=== PATIENT | female | born 1975 | race African-American/Black ===

== ENCOUNTER 2017-06-03 03:39 | Emergency (ER) | payer OTHER ==
[~2017-06-03] VITALS: Ht 157.5 cm; Wt 79.4 kg
[2017-06-03] MEDS ORDERED: ONDANSETRON HCL 4 MG/2 ML VIAL IV ONE (04:15)
[2017-06-03] MEDS ORDERED: SODIUM CHLORIDE 0.9% 1,000 ML IV ONE (04:15)
[2017-06-03] MEDS ORDERED: HYDROmorphone HCL 2 MG/ML VL IV ONE (04:15)
[2017-06-03 04:46] LABS: Basophils # (auto) 0.1 uL; Basophils % (auto) 0.9 % (0.0-2.0); Eosinophils # (auto) 0.1 uL; Eosinophils % (auto) 1.1 % (0.0-7.0); Hematocrit 36.4 % (36.0-46.0); Hemoglobin 12.4 g/dL (12.2-16.2); Lymphocytes # (auto) 1.6 uL; Lymphocytes % (auto) 25.5 % (10.0-50.0); Mean Corpuscular Hemoglobin 30.8 pg (28.0-32.0); Mean Corpuscular Hgb Conc. 34.1 g/dL (32.0-36.0); Mean Corpuscular Volume 90.2 fL (80.0-100.0); Mean Platelet Volume 8.2 fL (6.9-10.8); Monocytes # (auto) 0.5 uL; Monocytes % (auto) 8.1 % (0.0-12.0); Neutrophils % (auto) 64.4 % (37.0-80.0); Nucleated Red Blood Cells % 0.1 %; Platelet Count (auto) 211 10^3/uL (140-450); Red Cell Distribution Width 13.4 % (11.8-14.3); White Blood Cell 6.2 10^3/uL (4.4-10.8)
[2017-06-03 04:48] LABS: Albumin 3.6 g/dL (3.4-5.0); BUN/Creatinine Ratio 17.1; Calcium 8.8 mg/dL (8.5-10.1); Potassium 4.1 mmol/L (3.5-5.1)
[2017-06-03 04:51] LABS: Bilirubin, Total 0.4 mg/dL (0.2-1.0); Total Protein 7.7 g/dL (6.4-8.2)
[2017-06-03 05:45] VITALS: BP 111/72
[2017-06-03 06:20] LABS: Urine Bilirubin Negative (Negative); Urine Blood Negative /uL (Negative); Urine Color Yellow (Yellow); Urine Glucose Normal (Normal); Urine Ketone Negative (Negative); Urine Nitrite Negative (Negative); Urine RBC <1 /hpf (0 - 4); Urine Squamous Epithelial Cell FEW /hpf (<5); Urine Urobilinogen Normal (Negative)
== END 2017-06-03 06:36 | disposition home or self-care (01) ==
LOC: EDBD 03:39 → ER 03:44
DX: S33.5XXA Sprain of ligaments of lumbar spine, initial encounter (principal); M79.1 Myalgia; X58.XXXA Exposure to other specified factors, initial encounter; Y93.89 Activity, other specified; Y99.8 Other external cause status; Y92.89 Other specified places as the place of occurrence of the external cause; Z88.8 Allergy status to other drugs, medicaments and biological substances
CPT/HCPCS: 36415; 71010; 74176; 80053; 81001; 85025; 96361; 96374; 96375; 99285; J1170; J2405

== ENCOUNTER 2024-06-21 07:02 | Emergency (ER) | payer OTHER ==
[~2024-06-21] VITALS: Ht 157.5 cm; Wt 90.3 kg
[~2024-06-21 07:02] MED LIST: IBUP-1455 PO
[2024-06-21] MEDS ORDERED: ALBU108A5 IN (07:25)
[2024-06-21] MEDS ORDERED: BENZ100C97 PO (07:25)
[2024-06-21] MEDS ORDERED: IBUP-1454 PO (07:25)
[2024-06-21] MEDS ORDERED: METH4PAK PO (07:25)
[2024-06-21] MEDS ORDERED: PROM1SOL4 PO (07:25)
--- NOTE | 2024-06-21 07:25 | ED.PDOC ---
SOB-HPI HPI Comments 49-year-old female presents with a chief complaint of a nonproductive cough x7 days. 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 Hx Family History Family History: Unknown Social History Smoker: Non-Smoker Alcohol: Denies ETOH Use Drugs: Denies Drug Use Lives In: Home All Other Systems: Reviewed and Negative (per hpi) Physical Exam General Appearance: No Apparent Distress, Normal HEENT: Normal ENT Inspection, Pharynx Normal, TMs Normal Neck: Full Range of Motion, Non-Tender, Normal, Normal Inspection Respiratory: Chest Non-Tender, Lungs Clear, No Accessory Muscle Use, No Respiratory Distress, Normal Breath Sounds Cardiovascular: No Edema, No JVD, No Murmur, No Gallop, Normal Peripheral Pulses, Regular Rate/Rhythm Breast Exam: Deferred Gastrointestinal: No Organomegaly, Non Tender, No Pulsatile Mass, Normal Bowel Sounds, Soft Genitalia: Deferred Pelvic: Deferred Rectal: Deferred Extremities: No calf tenderness, Normal capillary refill, Normal inspection, Normal range of motion, Non-tender, No pedal edema Musculoskeletal : Apperance: Normal Neurologic: Alert, tape controlled machine stitcher II-XII nml as Tested, No Motor Deficits, Normal Affect, Normal Mood, No Sensory Deficits Cerebellar Function: Normal Reflexes: Normal Skin: Dry, Normal Color, Warm Lymphatic: No Adenopathy Was a procedure done? Was a procedure done?: No Differential Dx Differential Diagnosis: Bronchitis X-Ray, Labs, Meds, VS Comment History and physical consistent of URI Take medication as prescribed No concerns for pneumonia at this time. No risk factors. No indication for antibiotics Discussed that cough can linger up to 6 weeks after viral URI ED precautions if cough does not alleviate or if cough worsens Supportive care and return precautions discussed Counseled viral infection and explained that antibiotics would not be helpful in resolving the illness sooner. Recommended vitamin C, rest, handwashing, and symptomatic care. Expect 2-week course with possibly of cough lingering up to 6 weeks. Nonpharmacological remedies for fluids has been recommended as well Patient is stable for discharge at this time. External notes reviewed. Test results and diagnostic imaging interpreted. All diagnostic findings, discharge care, education and instructions provided Follow-up with PCP in 2 to 3 days Patient verbalized understanding and agreed to treatment plan Vital signs stable, afebrile, no acute distress noted Patient ambulatory with strong steady gait Advised to return precautions for any new or worsening symptoms, return to ER immediately for re-evaluation Patient is aware that the purpose of this visit was for an acute medical emergency requiring emergent stabilization. Chronic conditions, including malignancies have not been ruled out. Patient is instructed to follow up with PCP as directed and discharge instructions for continued care and workup. If unable to arrange follow-up, patient is to return to the emergency department for reassessment. Patient (parent or legal guardian if applicable) was given verbal and written discharge instructions and acknowledges understanding. Time of 1ST Reevaluation: 07:22 Reevaluation 1ST: Improved Patient Education/Counseling: Diagnosis, Treatment Family Education/Counseling: Diagnosis, Treatment Departure 1 Departure Time of Disposition: 07:23 Impression: Primary Impression: Bronchitis Disposition: 01 HOME / SELF CARE / HOMELESS Condition: Stable e-Prescriptions Benzonatate (Benzonatate) 100 Mg Cap 1 CAP PO TID for 10 Days, #30 CAP 0 Refills Prov: HITESH HARGROVE NP 06/21/24 Ibuprofen (Ibuprofen) 600 Mg Tab 1 TAB PO TID for 10 Days, #30 TAB 0 Refills Prov: HITESH HARGROEV NP 06/21/24 Albuterol Sulfate (Albuterol Sulfate Hfa) 108 Mcg/Act Aer 108 MCG IN Q6HPRN PRN for 30 Days, #1 AER 0 Refills Prov: HITESH HARGROVE NP 06/21/24 Promethazine-Dm (Promethazine Dm 6.25-15 mg/5Ml) 1 Marily Marily 5 ML PO TIDP PRN for 10 Days, #150 ML 0 Refills Prov: HITESH HARGROVE NP 06/21/24 Methylprednisolone (Medrol Dosepak) 4 Mg Perry 4 MG PO UD, #21 TAB 0 Refills UAD Prov: HITESH HARGROVE NP 06/21/24 Discharged With: Self Critical Care Note Critical Care Time?: No Stability Stability form required: No Heart Score Heart Score: Heart Score Response (Comments) Value History N/A 0 EKG N/A 0 Age N/A 0 Risk Factors N/A 0 Troponin N/A 0 Total 0 HITESH HARGROVE COIN MACHINE MECHANIC Jun 21, 2024 07:25
[2024-06-21 07:35] VITALS: BP 156/88; PULSE 100; RESP 16; TEMP 98.7; O2SAT 97
== END 2024-06-21 07:25 | disposition home or self-care (01) ==
LOC: ER 07:02
DX: J40 Bronchitis, not specified as acute or chronic (principal)

== ENCOUNTER 2025-06-01 14:14 | Emergency (ER) | payer OTHER ==
[~2025-06-01] VITALS: Ht 157.5 cm; Wt 91.8 kg
[~2025-06-01 14:14] MED LIST changes: +ALBU108A5 IN; +BENZ100C97 PO; +IBUP-1454 PO; +METH4PAK PO; +PROM1SOL4 PO
[2025-06-01 14:52] LABS: Hematocrit 37.2 % (36.0-46.0); Hemoglobin 12.5 g/dL (12.2-16.2); Mean Corpuscular Hemoglobin 29.3 pg (28.0-32.0); Mean Corpuscular Volume 86.9 fL (80.0-100.0); Nucleated Red Blood Cells % 0.1 %
[2025-06-01 15:01] LABS: Chloride 106 mmol/L (98-107); Potassium 4.1 mmol/L (3.5-5.1); Sodium 143 mmol/L (136-145)
[2025-06-01 15:02] LABS: Anion Gap 9 (5-15); Calcium 9.2 mg/dL (8.7-10.4); Carbon Dioxide 28 mmol/L (20-31)
[2025-06-01 15:07] LABS: BUN/Creatinine Ratio 12.4 (10.0-20.0); Blood Urea Nitrogen 11 mg/dL (9-23); Glucose 97 mg/dL (74-106)
--- NOTE | 2025-06-01 15:41 | ED.PDOC ---
History of Present Illness HPI Comments 50-year-old female presents to the ER with prior medical history of asthma and a chief complaint of chest pain. Patient reports that she was at work he had a sudden onset of left-sided chest pain which radiates to the back. Patient notes on the chest pain being heavy like sensation, and being an 8/10 on the pain scale. Denies any other symptoms at this time. Denies chills, fever, N/V/D, SOB. No other associated symptoms, modifiers, recent injuries or sick contacts present at this time. Chief Complaint: Chest Pain Time Seen by MD: 15:30 Primary Care Provider: UNKNOWN Reviewed Notes: Nurses Notes, Medications, Allergies Allergies: Coded Allergies: Tramadol (Unverified Allergy, Unknown, 06/03/17) Home Meds Active Scripts Benzonatate (Benzonatate) 100 Mg Cap, 1 CAP PO TID for 10 Days, #30 CAP 0 R efills Prov:HITESH HARGROVE SUPERVISOR CONDITIONING YARD 06/21/24 Ibuprofen (Ibuprofen) 600 Mg Tab, 1 TAB PO TID for 10 Days, #30 TAB 0 Refills Prov:HITESH HARGROVE SUPERVISOR CONDITIONING YARD 06/21/24 Albuterol Sulfate (Albuterol Sulfate Hfa) 108 Mcg/Act Aer, 108 MCG IN Q6HPRN PRN for 30 Days, #1 AER 0 Refills Prov:HITESH HARGROVE NP 06/21/24 Promethazine-Dm (Promethazine Dm 6.25-15 mg/5Ml) 1 Marily Marily, 5 ML PO TIDP PRN for 10 Days, #150 ML 0 Refills Prov:HITESH HARGROVE SUPERVISOR CONDITIONING YARD 06/21/24 Methylprednisolone (Medrol Dosepak) 4 Mg Perry, 4 MG PO UD, #21 TAB 0 Refills UAD Prov:HITESH HARGROVE SUPERVISOR CONDITIONING YARD 06/21/24 Ibuprofen Micronized (Ibuprofen) 800 Mg Tab, 800 MG PO Q8HP PRN, #20 TAB Prov:MANOJ BLISS PAC 10/12/23 Information Source: Patient Mode of Arrival: Ambulatory Severity: Moderate Timing: Minutes Duration: Since onset, Minutes Prehospital treatment: None Past Medical History PAST MEDICAL HISTORY: Asthma Surgical History: Denies all surgeries 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 Family History Family History: Reviewed,noncontributory to illness, Family hx of heart moe Social History Smoker: Non-Smoker Alcohol: Denies ETOH Use Drugs: Denies Drug Use Lives In: Home Constitutional: denies: chills, diaphoresis, fatigue, fever, malaise, sweats, weakness, others EENTM: denies: blurred vision, double vision, ear bleeding, ear discharge, ear drainage, ear pain, ear ringing, eye pain, eye redness, hearing loss, mouth pain, mouth swelling, nasal discharge, nose bleeding, nose congestion, nose pain, photophobia, tearing, throat pain, throat swelling, voice changes, others Respiratory: denies: cough, hemoptysis, orthopnea, SOB at rest, shortness of breath, SOB with excertion, stridor, wheezing, others Cardiovascular: reports: chest pain; denies: dizzy spells, diaphoresis, Dyspnea on exertion, edema, irregular heart beat, left arm pain, lightheadedness, palpitations, PND, syncope, others Gastrointestinal: denies: abdomen distended, abdominal pain, blood streaked bowels, constipated, diarrhea, dysphagia, difficulty swallowing, hematemesis, melena, nausea, poor appetite, poor fluid intake, rectal bleeding, rectal pain, vomiting, others Genitourinary: denies: abnormal vagina bleeding, burning, dyspareunia, dysuria, flank pain, frequency, hematuria, incontinence, pain, , vagina discharge, urgency, others Neurological: denies: dizziness, fainting, headache, left sided numbness, left sided weakness, numbness, paresthesia, pre-existing deficit, right sided numbness, right sided weakness, seizure, speech problems, tingling, tremors, weakness, others Musculoskeletal: reports: back pain; denies: gout, joint pain, joint swelling, muscle pain, muscle stiffness, neck pain, others Integumetry: denies: bruises, change in color, change in hair/nails, dryness, laceration, lesions, lumps, rash, wounds, others Allergic/Immunocompromised: denies: Difficulty Healing, Frequent Infections, Hives, Itching, others Hematologic/Lymphatic: denies: anemia, blood clots, easy bleeding, easy bruising, swollen glands, others Endocrine: denies: excessive hunger, excessive sweating, excessive thirst, excessive urination, flushing, intolerance to cold, intolerance to heat, unexplained weight gain, unexplained weight loss, others Psychiatric: denies: anxiety, bipolar disorder, depression, hopeless, panic disorder, schizophrenia, sleepless, suicidal, others All Other Systems: Reviewed and Negative Physical Exam General Appearance: No Apparent Distress, Normal HEENT: Normal ENT Inspection, Pharynx Normal, TMs Normal Neck: Full Range of Motion, Non-Tender, Normal, Normal Inspection Respiratory: Chest Non-Tender, Lungs Clear, No Accessory Muscle Use, No Respiratory Distress, Normal Breath Sounds Cardiovascular: No Edema, No JVD, No Murmur, No Gallop, Normal Peripheral Pulses, Regular Rate/Rhythm Breast Exam: Deferred Gastrointestinal: No Organomegaly, Non Tender, No Pulsatile Mass, Normal Bowel Sounds, Soft Genitalia: Deferred Pelvic: Deferred Rectal: Deferred Extremities: No calf tenderness, Normal capillary refill, Normal inspection, Normal range of motion, Non-tender, No pedal edema Musculoskeletal : Apperance: Normal Neurologic: Alert, multi punch operator II-XII nml as Tested, No Motor Deficits, Normal Affect, Normal Mood, No Sensory Deficits Cerebellar Function: Normal Reflexes: Normal Skin: Dry, Normal Color, Warm Lymphatic: No Adenopathy Was a procedure done? Was a procedure done?: No Differential Dx Considerations may include: DE, gastroenteritis, cholecystitis, cholelithiasis, pancreatitis, musculoskeletal chest pain X-Ray, Labs, Meds, VS Vital Signs Date Time Temp Pulse Resp B/P (MAP) Pulse Ox O2 Delivery O2 Flow Rate FiO2 06/01/25 17:33 62 06/01/25 15:12 70 06/01/25 14:30 75 06/01/25 14:18 98.3 91 18 164/99 99 98.3 Lab Test 06/01/25 17:27 06/01/25 15:28 06/01/25 14:34 Range/Units Troponin I High Sensitivity < 3 L < 3 L < 3 L </=34 ng/L White Blood Count 5.7 4.4-10.8 10^3/uL Red Blood Count 4.28 4.0-5.20 10^6/uL Hemoglobin 12.5 12.2-16.2 g/dL Hematocrit 37.2 36.0-46.0 % Mean Corpuscular Volume 86.9 80.0-100.0 fL Mean Corpuscular Hemoglobin 29.3 28.0-32.0 pg Mean Corpuscular Hemoglobin Concent 33.7 32.0-36.0 g/dL Red Cell Distribution Width 13.9 11.8-14.3 % Platelet Count 229 140-450 10^3/uL Mean Platelet Volume 8.7 6.9-10.8 fL Neutrophils (%) (Auto) 57.9 37.0-80.0 % Lymphocytes (%) (Auto) 32.7 10.0-50.0 % Monocytes (%) (Auto) 6.2 0.0-12.0 % Eosinophils (%) (Auto) 2.5 0.0-7.0 % Basophils (%) (Auto) 0.7 0.0-2.0 % Neutrophils # (Auto) 3.3 1.6-8.6 10 ^3/uL Lymphocytes # (Auto) 1.9 0.4-5.4 10 ^3/uL Monocytes # (Auto) 0.4 0-1.3 10 ^3/uL Eosinophils # (Auto) 0.1 0-0.8 10 ^3/uL Basophils # (Auto) 0 0-0.2 10 ^3/uL Nucleated Red Blood Cells 0.1 % Sodium Level 143 136-145 mmol/L Potassium Level 4.1 3.5-5.1 mmol/L Chloride Level 106 98-107 mmol/L Carbon Dioxide Level 28 20-31 mmol/L Anion Gap 9 5-15 Blood Urea Nitrogen 11 9-23 mg/dL Creatinine 0.89 0.550-1.02 mg/dL Glomerular Filtration Rate Calc 78 >90 mL/min BUN/Creatinine Ratio 12.4 10.0-20.0 Serum Glucose 97 74-106 mg/dL Calcium Level 9.2 8.7-10.4 mg/dL X-Ray, Labs, Meds, VS Comment Imaging was reviewed by this provider, there is no obvious pathological or acute disease process. Pending radiology review Labs were reviewed by this provider, no abnormalities Vital signs reviewed by this provider, clinically stable Time of 1ST Reevaluation: 16:00 Reevaluation 1ST: Unchanged Patient Education/Counseling: Diagnosis, Treatment, Prognosis, Need For Follow Up (Follow up with PCP next available appointment. Return to the emergency department if symptoms worsen.) Family Education/Counseling: No Family Present SEPSIS Sepsis Screen Date sepsis recognized/suspect: Jun 01, 2025 Time Sepsis recognized/suspect: 1420 Recent Procedure: No On Antibiotic Therapy: No Respiratory Rate >20: No Heart Rate >90: Yes Temp<36 C (96.8 F) or >38.3 C: No SBP <90 or MAP <65 mmHG: No New Acute Mental Status Change: No Is the patient on CPAP, BIPAP,: No Physician Orders Urinalysis (06/01/25 14:21) Electrocardigram (06/01/25 14:21) Electrocardigram (06/01/25 15:21) Electrocardigram (06/01/25 17:21) Chest Xray 1 View (06/01/25 15:18) Ct Ab Pel Wo Con-No Oral Or Iv (06/01/25 17:52) Vital Signs Date Time Temp Pulse Resp B/P (MAP) Pulse Ox O2 Delivery O2 Flow Rate FiO2 06/01/25 17:33 62 06/01/25 15:12 70 06/01/25 14:30 75 06/01/25 14:18 98.3 91 18 164/99 99 98.3 Laboratory Tests Test 06/01/25 14:34 White Blood Count 5.7 10^3/uL (4.4-10.8) Departure 1 Departure Time of Disposition: 21:02 Impression: Primary Impression: Musculoskeletal chest pain Disposition: 01 HOME / SELF CARE / HOMELESS Condition: Fair e-Prescriptions Ibuprofen Micronized (Ibuprofen) 800 Mg Tab 800 MG PO TID PRN, #30 TAB Prov: BRIAN SOTO 06/01/25 Discharged With: Self Critical Care Note Critical Care Time?: No Stability Stability form required: No Heart Score Heart Score: Heart Score Response (Comments) Value History N/A 0 EKG N/A 0 Age N/A 0 Risk Factors N/A 0 Troponin N/A 0 Total 0 I personally scribed for HITESH HARGROVE NP ([email or web address]) on 06/01/25 at 15:41. Electronically submitted by Fernando Reyes ([email or web address]). HITESH HARGROVE NP Jun 01, 2025 15:41 BRIAN SOTO Jun 01, 2025 21:03
--- NOTE | 2025-06-01 16:03 | DVH ---
CHEST RADIOGRAPH Indication: cp Technique: XY CHEST XRAY 1 VIEW Comparison: None FINDINGS: The cardiac silhouette is unremarkable. The lungs demonstrate no pulmonary airspace consolidation. The pulmonary vasculature is mildly prominent. There is no pleural effusion. There is no pneumothorax. IMPRESSION: Mild pulmonary vascular congestion.
--- NOTE | 2025-06-01 18:49 | DVH ---
CLINICAL HISTORY: abd pain TECHNIQUE: CT of the abdomen and pelvis was performed without IV contrast. This exam was performed according to our departmental dose optimization program. Up-to-date CT equipment and radiation dose reduction techniques are utilized as appropriate. CTDI 16 DLP 815 COMPARISON: None FINDINGS: Abdomen/Pelvis: The spleen, pancreas, adrenal glands, kidneys, gallbladder, bladder, and uterus are grossly unremarkable. Subcentimeter hypodense lesions within the liver are too small to adequately characterize. The abdominal aorta is normal in course and caliber. There are minimal aortic atherosclerotic calcifications. There is no free intraperitoneal air or fluid. There is no enlarged abdominal pelvic lymph node. There is no bowel wall thickening or dilatation. The appendix is normal. Other: The imaged lower thorax is unremarkable. No acute osseous abnormality is evident. Impression: No acute noncontrast CT abnormality in the abdomen/ pelvis.
[2025-06-01] MEDS ORDERED: IBUP-1455 PO (21:03)
[2025-06-01 21:29] VITALS: BP 161/91; PULSE 84; RESP 18; TEMP 98; O2SAT 98
--- NOTE | 2025-06-02 08:05 | ECG ---
[facility] Test Date: 2025-06-01 Test Time: 14:30:51 Pat Name: VA POLK Department: ED Room: Gender: F Community Midwife: rodri : 1975 Requested By: SHERRIE BRIGGS Order Number: [id number] Reading MD: Marcus Maravilla Measurements Intervals [place] Rate: 75 P: 64 [place]: 192 QRS: 69 QRSD: 80 T: 1 QT: 362 QTc: 405 Interpretive Statements Sinus rhythm Probable left atrial enlargement Borderline T abnormalities, anterior leads Electronically Signed On 06-03-2025 15:44:36 PST by Marcus Maravilla Please click the below link to view image of tracing.
--- NOTE | 2025-06-02 08:06 | ECG ---
[facility] Test Date: 2025-06-01 Test Time: 15:12:11 Pat Name: VA POLK Department: ED Room: Gender: F Design Verification Engineer: dr CARDONA: 1975 Requested By: SHERRIE BRIGGS Order Number: [id number] Reading MD: Marcus Maravilla Measurements Intervals [place] Rate: 70 P: 77 PA: 186 QRS: 87 QRSD: 81 T: 1 QT: 357 QTc: 386 Interpretive Statements Sinus rhythm Borderline T wave abnormalities Electronically Signed On 06-03-2025 15:44:46 PST by Marcus Maravilla Please click the below link to view image of tracing.
--- NOTE | 2025-06-02 08:07 | ECG ---
[facility] Test Date: 2025-06-01 Test Time: 17:33:38 Pat Name: VA POLK Department: ED Room: Gender: F Mannequin Decorator: dr CARDONA: 1975 Requested By: SHERRIE BRIGGS Order Number: [id number] Reading MD: Marcus Maravilla Measurements Intervals [place] Rate: 62 P: 41 [place]: 202 QRS: 71 QRSD: 77 T: 6 QT: 392 QTc: 398 Interpretive Statements Sinus rhythm Borderline prolonged OK interval Electronically Signed On 06-03-2025 15:44:53 PST by Marcus Maravilla Please click the below link to view image of tracing.
== END 2025-06-01 21:51 | disposition home or self-care (01) ==
LOC: ER 14:14
DX: R07.89 Other chest pain (principal); J45.909 Unspecified asthma, uncomplicated; Z79.1 Long term (current) use of non-steroidal anti-inflammatories (NSAID); Z88.5 Allergy status to narcotic agent
CPT/HCPCS: 36415; 71045; 74176; 80048; 84484; 85025; 93005